=== PATIENT | male | born 1970 | race Caucasian/White ===

== ENCOUNTER 2017-06-08 13:34 | Emergency (ER) | payer OTHER ==
[2017-06-08] MEDS ORDERED: Ketorolac INJ* 30 MG/ML 1 ML VIAL IV PUSH ONE (13:59)
[2017-06-08] MEDS ORDERED: Cyclobenzaprine TAB* 10 MG PO ONE (13:59)
[2017-06-08 14:32] LABS: Hematocrit 46 % (42-52); Hemoglobin 15.6 g/dl (14.0-18.0); Mean Corpuscular HGB Conc 34 g/dl (31-36); Mean Corpuscular Hemoglobin 32 pg (27-31); Mean Corpuscular Volume 92 fL (80-94); Mean Platelet Volume 8 um3 (7.4-10.4); Red Blood Count 4.95 10^6/ul (4.0-5.4); Red Cell Distribution Width 13 % (10.5-15); White Blood Count 8.1 10^3/ul (3.5-10.8)
[2017-06-08 14:47] LABS: ALT 10 U/L (7-52); AST 13 U/L (13-39); Albumin 4.5 g/dL (3.2-5.2); Alkaline Phosphatase 40 U/L (34-104); Anion Gap 6 mmol/L (2-11); BUN/Creatinine Ratio 17.6 (8-20); Blood Urea Nitrogen 13 mg/dL (6-24); C Reactive Protein < 1.00 mg/L (< 5.00); CO2 Carbon Dioxide 25 mmol/L (22-32); Calcium 9.2 mg/dL (8.6-10.3); Chloride 107 mmol/L (101-111); EGFR African American 145.2 (>60); EGFR Non-African American 112.9 (>60); Globulin 2.4 g/dL (2-4); Glucose 117 mg/dL (70-100); Lipase 33 U/L (11.0-82.0); Potassium 3.7 mmol/L (3.5-5.0); Sodium 138 mmol/L (133-145); Total Protein 6.9 g/dL (6.4-8.9)
--- NOTE | 2017-06-08 15:50 | RAD ---
INDICATION: Extreme low back pain with incontinence COMPARISON: None TECHNIQUE: Coronal gas welder apprentice, sagittal T1, inversion recovery, T2, and axial T1, T2 images were acquired. FINDINGS: The spinal cord terminates at the L1 level. There are no intrinsic abnormalities of the visualized cord. The lower thoracic and lumbar vertebrae are normally aligned. Vertebral body height is adequately maintained and bony signal is within normal limits. There is loss of normal fluid signal at the L4/L5 and L5/S1 intervertebral disc space. Axial view images: Less otherwise specified below there is no significant central canal stenosis or neural foraminal stenosis. T12-L1:There is no significant central canal or neural foraminal stenoses. L1-L2: There is broad-based disc protrusion extending into the right neural foraminal space and the left subarticular zone but does not yield any significant neural foraminal or central canal stenosis. L2-L3: Broad-based disc protrusion extending into the right neural foraminal space and to a lesser extent the left neural foraminal space combines with facet arthropathy and thickening of ligamentum flavum to cause very mild left-sided neural foraminal stenosis. L3-L4: There is no significant central canal or neural foraminal stenoses. L4-L5: Broad-based disc protrusion eccentric towards the right extending into the right neural foraminal space and to a lesser extent the left neural foraminal and extraforaminal space combines with thickening of the ligamentum flavum and facet arthropathy to cause mild right-sided neural foraminal stenosis and mild left neural foraminal stenosis. L5-S1: Broad-based disc protrusion extending to the subarticular region bilaterally combines with facet arthropathy and thickening of ligamentum flavum to cause mild bilateral neural foraminal stenosis. IMPRESSION: Mild degenerative changes as described above without definite MRI evidence of acute neurologic injury.
--- NOTE | 2017-06-08 17:17 | ED ---
Vasu Vigil Tecjoon, scribed for Rene Adhikari MD on 06/08/17 at 1354 . Back Pain - HPI Summary HPI Summary: The patient is a 46 year old male referred from [facility] complaining of lower back pain that began two days ago and has progressively worsened. The pain is located in his lower lumbar spine in the middle and on both sides. The pain is described as tightness. The pain is aggravated by movement and positional change. The pain is rated 10/10. When the patient is asked if he has bladder or bowel incontinence, he responds when Im about to urinate the urine is already there. The urine is brown. The patient denies any known trauma or heavy lifting. Patient denies fever, chills, and extremity weakness/numbness. He is self-employed as a contractor. - History of Current Complaint Chief Complaint: EDBackInjuryPain Stated Complaint: LOW BACK PAIN Time Seen by Provider: 06/08/17 13:46 Hx Obtained From: Patient Onset/Duration: Lasting Days - 2, Still Present, Worse Since - progressively Onset/Duration: Started Days Ago - 2, Still Present Timing: Constant Back Pain Location: Is Discrete @ - lower lumbar spine on the middle and both sides Severity Currently: Severe Pain Intensity: 10 Pain Scale Used: 0-10 Numeric Character: Unable to Describe - tightness Aggravating Symptom(s): Movement, Other - positional change Alleviating Symptom(s): Nothing Associated Signs And Symptoms: Positive: Bladder Incontinence. Negative: Fever , Weakness - extremity, Numbness - extremity, Other - chills PMH/Surg Hx/FS Hx/Imm Hx Previously Healthy: No Sensory History: Reports: Hx Eye Prosthesis EENT History: Denies: Hx Deafness Infectious Disease History: No Infectious Disease History: Denies: Traveled Outside the [place] in Last 30 Days - Family History Known Family History: Positive: Other - Colon cancer - Social History Occupation: Employed Full-time Lives: With Family Alcohol Use: None Hx Substance Use: Yes Substance Use Type: Reports: Marijuana Hx Tobacco Use: No Smoking Status (MU): Never Smoked Tobacco Review of Systems Negative: Fever, Chills Negative: Other - bowel incontinence Positive: incontinence - urinary Positive: Other - Back pain Negative: Weakness - extremity, Numbness - extremity All Other Systems Reviewed And Are Negative: Yes Physical Exam Triage Information Reviewed: Yes Vital Signs On Initial Exam: Initial Vitals Temp Pulse Resp BP Pulse Ox 98.2 F 68 16 156/87 98 06/08/17 13:35 06/08/17 13:35 06/08/17 13:35 06/08/17 13:35 06/08/17 13:35 Vital Signs Reviewed: Yes Appearance: Positive: Well-Appearing, No Pain Distress Skin: Positive: Skin Color Reflects Adequate Perfusion Eyes: Positive: EOMI, CHENCHO ENT: Positive: Normal ENT inspection Neck: Positive: Nontender Respiratory/Lung Sounds: Positive: Clear to Auscultation, Breath Sounds Present Cardiovascular: Positive: RRR. Negative: Murmur Abdomen Description: Positive: Nontender, Other: - normal rectal tone Male Genital Exam: Negative: hernia mass, inguinal tenderness Musculoskeletal: Positive: Strength/ROM Intact Neurological: Positive: Sensory/Motor Intact, Alert, Oriented to Person Place, Time, CN Intact II-III, Normal Gait - Pioneer Coma Scale Best Eye Response: 4 - Spontaneous Best Motor Response: 6 - Obeys Commands Best Verbal Response: 5 - Oriented Diagnostics - Vital Signs Vital Signs Temp Pulse Resp BP Pulse Ox 06/08/17 13:35 98.2 F 68 16 156/87 98 - Laboratory Result Diagrams: 06/08/17 14:18 06/08/17 14:18 Lab Statement: Any lab studies that have been ordered have been reviewed, and results considered in the medical decision making process. - Additional Comments Diagnostic Additional Comments: MRI L-Spine. Interpreted by radiologist. Impression: Mild degenerative changes as described above without definite MRI evidence of acute neurologic injury. Dr. Adhikari has viewed this report. Re-Evaluation - Re-Evaluation First Eval Re-Evaluation Time: 17:15 Change: Improved Comment: He reports that he feels much better at this time, and is ready to go home. Back Pain Course/Dx - Course Course Of Treatment: The patient is a 46 year old male referred from [facility] complaining of tight lower back pain that began two days ago and has progressively worsened. The pain is located in his lower lumbar spine in the middle and on both sides. The patient denies any known trauma or heavy lifting. In the ED course, the patient was given Toradol, Flexeril. Bloodwork and Urinalysis was obtained. MRI L-Spine reveals, per radiologist, Mild degenerative changes as described above without definite MRI evidence of acute neurologic injury. ED physician has reviewed this radiology report. Degenerative chagnes On MRI. No chord compression or cauda equina. Will Rx with medrol dose korey and also flexeril. FU with PMD. Ortho and NS referrals given. FU for BP recheck but i feel this is pain related. - Diagnoses Provider Diagnoses: Back pain, Hypertension Discharge - Discharge Plan Condition: Good Disposition: HOME Prescriptions: Cyclobenzaprine TAB* [Flexeril 10 MG TAB*] 10 mg PO BID PRN #10 tab PRN Reason: Spasms - Back Methylprednisolone [Medrol Dosepak 4 MG*] 4 mg PO .SEE KOREY INSTRUCTION #1 korey Patient Education Materials: Lumbar Disc Herniation (ED), Acute Low Back Pain ( ED), Hypertension (ED) Referrals: Deepak Cruz MD [Primary Care Provider] - 2 Days Say Sparks MD [Medical Doctor] - Caesar Baker MD [Medical Doctor] - The documentation as recorded by the Vasu srinivasan Tecjoon accurately reflects the service I personally performed and the decisions made by me, Rene Adhikari MD.
[2017-06-08 17:57] VITALS: BP 127/78
== END 2017-06-08 17:56 | disposition home or self-care (01) ==
LOC: ED 13:34
DX: M54.5 Low back pain (principal); I10 Essential (primary) hypertension
CPT/HCPCS: 36415; 72148; 80053; 82272; 83605; 83690; 85025; 86140; 99283; A9270-GY; J1885

== ENCOUNTER 2019-10-03 14:41 | Emergency (ER) | payer OTHER ==
--- NOTE | 2019-10-03 14:55 | ED ---
Back Pain - HPI Summary HPI Summary: 49 year old M presenting to [facility] with a chief complaint of sharp left sided lower back pain that radiates to his buttock and left thigh since 4 days ago. Patient reports tingling down his left leg when spasms occur. The patient rates the pain 2/10 in severity. He reports that 3 days ago he was unable to get up secondary to his pain. Symptoms aggravated by movement. Symptoms alleviated by nothing. 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 He was seen here for similar symptoms 3 years ago and was prescribed medications that provided relief. Patient denies any urinary incontinence. Medication list reviewed. Allergy list reviewed. - History of Current Complaint Chief Complaint: EDBackInjuryPain Stated Complaint: PAIN Time Seen by Provider: 10/03/19 14:50 Hx Obtained From: Patient Onset/Duration: Lasting Days, Still Present Onset/Duration: Still Present Timing: Constant Back Pain Location: Is Discrete @ - Left side Severity Currently: Mild Pain Intensity: 2 Pain Scale Used: 0-10 Numeric Character: Sharp Aggravating Symptom(s): Movement Alleviating Symptom(s): Nothing Associated Signs And Symptoms: Positive: Tingling. Negative: Bladder Incontinence - Allergies/Home Medications Allergies/Adverse Reactions: Allergies Allergy/AdvReac Type Severity Reaction Status Date / Time No Known Allergies Allergy Verified 10/03/19 14:49 Home Medications: Home Medications Cyclobenzaprine TAB* [Flexeril 10 MG TAB*] 10 mg PO TID PRN 4 Days #12 tab 10/02 [Rx] Ibuprofen TAB* [Motrin TAB* 800 MG] 800 mg PO TID PRN 10 Days #30 tab 10/03/19 [ Rx] traMADol TAB* [Ultram*] 50 mg PO Q8H PRN 3 Days #12 tab MDD 3 10/03/19 [Rx] PMH/Surg Hx/FS Hx/Imm Hx Cardiovascular History: Denies: Hx Pacemaker/ICD Sensory History: Reports: Hx Eye Prosthesis Denies: Hx Deafness, Hx Hearing Aid Opthamlomology History: Reports: Hx Eye Prosthesis Psychiatric History: Denies: Hx Panic Disorder - Surgical History Surgical History: Yes Surgery Procedure, Year, and Place: BILAT CATARACTS Infectious Disease History: No Infectious Disease History: Denies: Traveled Outside the [place] in Last 30 Days - Family History Known Family History: Positive: Other - Colon cancer - Social History Alcohol Use: None Hx Substance Use: Yes Substance Use Type: Reports: Marijuana Hx Tobacco Use: No Smoking Status (MU): Never Smoked Tobacco Review of Systems Negative: incontinence Positive: Other - Left sided back pain Positive: Paresthesia - Left leg All Other Systems Reviewed And Are Negative: Yes Physical Exam - Summary Physical Exam Summary: Constitutional: Well-developed, Well-nourished, Alert. (-) Distressed Skin: Warm, Dry HENT: Normocephalic; Atraumatic Eyes: Conjunctiva normal Neck: Musculoskeletal ROM normal neck. (-) JVD, (-) Stridor, (-) Nuchal rigidity Cardio: Rhythm regular, rate normal, Heart sounds normal; Intact distal pulses; Radial pulses are 2+ and symmetric. (-) Murmur Pulmonary/Chest wall: Effort normal. (-) Respiratory distress, (-) Wheezes, (-) Rales Abd: Soft, (-) tenderness, (-) Distension, (-) Guarding, (-) Rebound Musculoskeletal: Tenderness of the left paraspinal lumbar spine and SI joint, 5 out of 5 strength in the right and left lower extremities. Systolic blood pressure in the lower extremities are 148 on the left and 145 on the right (ADRIAN 1). 2+ DP pulses in both feet. Neuro: Alert, Oriented x3 Psych: Mood and affect Normal Triage Information Reviewed: Yes Vital Signs On Initial Exam: Initial Vitals Temp Pulse Resp BP Pulse Ox 97.8 F 96 18 146/98 98 10/03/19 14:45 10/03/19 14:45 10/03/19 14:45 10/03/19 14:45 10/03/19 14:45 Vital Signs Reviewed: Yes Procedures - Sedation Patient Received Moderate/Deep Sedation with Procedure: No Diagnostics - Vital Signs Vital Signs Temp Pulse Resp BP Pulse Ox 10/03/19 14:45 97.8 F 96 18 146/98 98 - Laboratory Lab Statement: Any lab studies that have been ordered have been reviewed, and results considered in the medical decision making process. - Radiology Hip/Pelvis x-ray Radiology Interpretation Completed By: Radiologist Summary of Radiographic Findings: Findings consistent with femoral acetabular impingement without fracture. ED physician has reviewed this report. Back Pain Course/Dx - Course Course Of Treatment: 49 y/o male p/w L sided back pain and hip discomfort, no trauma, no red flags. - Strength 5/5 LE, SILT. No signs cauda equina. XR w femoral acetabular impingement. Given NSAIDs, flexeril and tramadol PRN severe pain. - given ortho referral - Diagnoses Provider Diagnoses: Back pain, Femoral acetabular impingement - Critical Care Time Critical Care Statement: Critical care time is provided exclusive of any time spent performing procedures. Discharge ED - Sign-Out/Discharge Documenting (check all that apply): Patient Departure - Discharge Plan Condition: Stable Disposition: HOME Prescriptions: Cyclobenzaprine TAB* [Flexeril 10 MG TAB*] 10 mg PO TID PRN 4 Days #12 tab PRN Reason: Pain - Moderate Ibuprofen TAB* [Motrin TAB* 800 MG] 800 mg PO TID PRN 10 Days #30 tab PRN Reason: Pain - Moderate traMADol TAB* [Ultram*] 50 mg PO Q8H PRN 3 Days #12 tab MDD 3 PRN Reason: Pain - Severe Patient Education Materials: Low Back Strain (ED), Hip Impingement (ED) Referrals: No Primary Care Phys,NOPCP [Primary Care Provider] - Additional Instructions: You were seen in the emergency department for pain. Your x-ray did not show something called femoral acetabular impingement which is usually treated without surgery. Please take Ultram, Flexeril at night for muscle pain, and tramadol as needed for severe pain. Do not drive while taking tramadol or flexeril. Please follow up with your primary care doctor in next 2-3 days and return to emergency department for worsening pain, numbness or weakness of your legs, bladder or bowel incontinence, or concerning symptoms. It was a pleasure taking care of you today. - Billing Disposition and Condition Condition: STABLE Disposition: Home - Attestation Statements Document Initiated by Scribe: Yes Documenting Scribe: Usha Cronin Provider For Whom Viki is Documenting (Include Credential): Octavio Patel MD Scribe Attestation: Usha Vigil scribed for Octavio Patel MD on 10/03/19 at 1743. Scribe Documentation Reviewed: Yes Provider Attestation: The documentation as recorded by the Usha srinivasan accurately reflects the service I personally performed and the decisions made by me, Octavio Patel MD Status of Scribe Document: Viewed
[2019-10-03] MEDS ORDERED: oxyCODONE/Acetamin 5/325 MG* TAB PO ONE (15:09)
[2019-10-03] MEDS ORDERED: Ketorolac TAB * 10 MG TAB PO ONE (15:09)
[2019-10-03 17:40] VITALS: BP 120/68
== END 2019-10-03 17:40 | disposition home or self-care (01) ==
LOC: ED 14:41
DX: M54.9 Dorsalgia, unspecified (principal); M25.80 Other specified joint disorders, unspecified joint; Z79.899 Other long term (current) drug therapy; Z97.0 Presence of artificial eye; R20.2 Paresthesia of skin; M54.5 Low back pain
CPT/HCPCS: 99282